=== PATIENT | male | born 1955 | race Caucasian/White ===

== ENCOUNTER 2017-08-20 11:20 | Emergency (ER) | payer MEDICARE, MEDICAID ==
[~2017-08-20] VITALS: Ht 188 cm; Wt 99.8 kg
[~2017-08-20 11:20] MED LIST: INSULIN SUBCUT
--- NOTE | 2017-08-20 11:43 | NUR ---
PT LEFT WITHOUT RECIEVING THE D/C INSTRUCTION
== END 2017-08-20 11:43 | disposition home or self-care (01) ==
LOC: ER 11:25
DX: M54.5 Low back pain (principal); G89.4 Chronic pain syndrome; Z88.2 Allergy status to sulfonamides; Z88.8 Allergy status to other drugs, medicaments and biological substances; Z79.4 Long term (current) use of insulin
CPT/HCPCS: A4663

== ENCOUNTER 2017-09-06 14:13 | Emergency (ER) | payer MEDICAID, MEDICARE ==
[~2017-09-06] VITALS: Ht 188 cm; Wt 99.8 kg
--- NOTE | 2017-09-06 14:53 | NUR ---
DR Reeves at the bedside for MSE.
[2017-09-06] MEDS ORDERED: CLINDAMYCIN HCL 150 MG CAPSULE ONE (15:00)
[2017-09-06] MEDS ORDERED: CLINDAMYCIN HCL 150 MG CAPSULE PO ONE (15:00)
[2017-09-06] MEDS ORDERED: HYDROCODONE/APAP 10-325 MG TABLET ONE (15:04)
[2017-09-06 15:07] VITALS: BP 109/72
--- NOTE | 2017-09-06 15:07 | NUR ---
Patient discharged to home in stable conditon. Written and verbal after care instructions given. Patient verbalizes understanding of instructions.
[2017-09-06] MEDS ORDERED: HYDROCODONE/APAP 10-325 MG TABLET PO ONE (15:15)
== END 2017-09-06 15:08 | disposition home or self-care (01) ==
LOC: ER 14:14
DX: L03.012 Cellulitis of left finger (principal); E78.5 Hyperlipidemia, unspecified; Z88.2 Allergy status to sulfonamides; Z88.8 Allergy status to other drugs, medicaments and biological substances; Z79.4 Long term (current) use of insulin
CPT/HCPCS: A4663

== ENCOUNTER 2017-10-23 04:03 | Emergency (ER) | payer MEDICARE ==
[~2017-10-23] VITALS: Ht 188 cm; Wt 99.8 kg
--- NOTE | 2017-10-23 04:23 | NUR ---
Dr. Fonseca at bedside for MSE.
[2017-10-23] MEDS: CLINDAMYCIN HCL 150 MG CAPSULE PO ONE (04:27)
[2017-10-23] MEDS ORDERED: HYDROCODONE/APAP 5-325MG TABLET ONE (04:28)
[2017-10-23] MEDS: HYDROCODONE/APAP 5-325MG TABLET PO ONE (04:28)
[2017-10-23] MEDS ORDERED: CLINDAMYCIN HCL 300 MG CAPSULE ONE (04:29)
--- NOTE | 2017-10-23 04:30 | NUR ---
Patient discharged to home in stable conditon. Written and verbal after care instructions given. Patient verbalizes understanding of instructions. Pt ambulated out of ER with steady gait, no acute signs of distress, VSS, all belongings taken.
[2017-10-23 04:32] VITALS: BP 120/73
== END 2017-10-23 04:34 | disposition home or self-care (01) ==
LOC: ER 04:07
DX: L02.211 Cutaneous abscess of abdominal wall (principal); F17.200 Nicotine dependence, unspecified, uncomplicated; Z88.2 Allergy status to sulfonamides; Z88.8 Allergy status to other drugs, medicaments and biological substances; Z79.4 Long term (current) use of insulin
CPT/HCPCS: A4663; J7030

== ENCOUNTER 2017-11-27 18:36 | Emergency (ER) | payer MEDICARE ==
[~2017-11-27] VITALS: Ht 188 cm; Wt 99.8 kg
--- NOTE | 2017-11-27 19:34 | NUR ---
Dr. Hopper at bedside for MSE.
--- NOTE | 2017-11-27 19:40 | NUR ---
Pt refused IV, reports he doesn't have many good veins, has plans to come back later to get IV antibiotic. notified.
[2017-11-27] MEDS ORDERED: OXYCODONE/APAP 5-325 MG TABLET PO ONE (19:45)
[2017-11-27] MEDS ORDERED: VANCOMYCIN IV 1,000 MG in IV DEXTROSE 5% 250 ML IV ONE (19:45)
--- NOTE | 2017-11-27 19:45 | NUR ---
Patient does not wish to proceed with medical care recommended by Dr. Hopper. Patient given information related to possible complications, up to and including , which could occur as a result of leaving the hospital at this time. Patient verbalizes understanding of risks involved due to leaving against medical advice. Patient has signed AMA form.
[2017-11-27] MEDS ORDERED: OXYCODONE/APAP 5-325 MG TABLET ONE (19:47)
[2017-11-27 19:49] VITALS: BP 120/74
== END 2017-11-27 19:50 | disposition left against medical advice (07) ==
LOC: ER 18:39
DX: M71.121 Other infective bursitis, right elbow (principal); G89.4 Chronic pain syndrome; Z71.6 Tobacco abuse counseling; F17.200 Nicotine dependence, unspecified, uncomplicated
CPT/HCPCS: 99282; A4663

== ENCOUNTER 2017-11-28 14:01 | Inpatient (IN) | payer MEDICARE ==
[~2017-11-28] VITALS: Ht 188 cm; Wt 99.8 kg
[2017-11-28] MEDS ORDERED: VANCOMYCIN IV 1,000 MG in IV DEXTROSE 5% 250 ML IV ONE (15:15)
[2017-11-28] MEDS ORDERED: VANCOMYCIN IV 200 ML ONE (15:20)
[2017-11-28] MEDS ORDERED: KETOROLAC TROMETHAMINE 15 MG INJ IM ONE (16:15)
[2017-11-28] MEDS ORDERED: KETOROLAC TROMETHAMINE 15 MG INJ ONE (16:25)
[2017-11-28] MEDS ORDERED: MORPHINE SULFATE 4 MG/1 ML DISP.SYRIN SQ ONE (16:45)
[2017-11-28] MEDS ORDERED: IV NS 1000 ML 1,000 ML IV PRN (16:49)
[2017-11-28] MEDS ORDERED: MORPHINE SULFATE 4 MG/1 ML DISP.SYRIN ONE (16:49)
[2017-11-28] MEDS ORDERED: TEMAZEPAM 15 MG CAPSULE PO PRN (17:00)
[2017-11-28] MEDS ORDERED: ACETAMINOPHEN 325 MG TABLET PO PRN (17:00)
[2017-11-28] MEDS ORDERED: ONDANSETRON 4 MG/2 ML VIAL IV PRN (17:00)
[2017-11-28] MEDS ORDERED: HYDROCODONE/APAP 10-325 MG TABLET PO PRN (17:00)
[2017-11-28] MEDS ORDERED: MORPHINE SULFATE 2 MG/1 ML DISP.SYRIN IV PRN (17:00)
[2017-11-28] MEDS ORDERED: MORPHINE SULFATE 4 MG/1 ML DISP.SYRIN IV PRN (17:30)
[2017-11-28 17:47] VITALS: BP 127/81
[2017-11-28 20:59] VITALS: BP 125/72
[2017-11-28] MEDS ORDERED: CEFAZOLIN 1 G in PREMIXED 1 EACH IV SCH (22:00)
== END 2017-11-28 22:45 | disposition left against medical advice (07) | DRG 558 ==
LOC: ER 14:01 → MED 17:13
PROVIDERS: ADMIT Nurse Practitioner Acute Care; ATTEND Nurse Practitioner Acute Care
DX: M71.121 Other infective bursitis, right elbow (principal); L02.413 Cutaneous abscess of right upper limb; F11.20 Opioid dependence, uncomplicated; F17.210 Nicotine dependence, cigarettes, uncomplicated; Z87.442 Personal history of urinary calculi; E66.9 Obesity, unspecified; Z68.28 Body mass index [BMI] 28.0-28.9, adult; G89.4 Chronic pain syndrome
CPT/HCPCS: A4663; J0690; J1885; J2270; J3370

== ENCOUNTER 2018-05-09 14:48 | Emergency (ER) | payer MEDICARE ==
[~2018-05-09] VITALS: Ht 188 cm; Wt 99.8 kg
[2018-05-09] MEDS ORDERED: HYDROMORPHONE 2 MG/1 ML DISP.SYRIN ONE (15:09)
[2018-05-09] MEDS ORDERED: ONDANSETRON 4 MG/2 ML VIAL ONE (15:09)
[2018-05-09] MEDS ORDERED: KETOROLAC TROMETHAMINE 30 MG INJ ONE (15:09)
[2018-05-09] MEDS ORDERED: HYDROMORPHONE 1 MG/1 ML DISP.SYRIN IV ONE (15:15)
[2018-05-09] MEDS ORDERED: IV NORMAL SALINE 1000 ML BAG IV ONE (15:15)
[2018-05-09] MEDS ORDERED: KETOROLAC TROMETHAMINE 15 MG INJ IV ONE (15:15)
[2018-05-09] MEDS ORDERED: ONDANSETRON 4 MG/2 ML VIAL IV ONE (15:15)
--- NOTE | 2018-05-09 15:24 | NUR ---
PT IS IN ROOM #2A. DR GA EVALUATED THE PT.
--- NOTE | 2018-05-09 15:58 | NUR ---
PT WAS D/C 'd TO HOME. D/C INSTRUCTIONS GIVEN TO THE PT.
[2018-05-09 16:01] VITALS: BP 139/91
== END 2018-05-09 16:02 | disposition home or self-care (01) ==
LOC: ER 14:48
DX: R10.9 Unspecified abdominal pain (principal); F17.200 Nicotine dependence, unspecified, uncomplicated
CPT/HCPCS: 96374; 96375; 99283; J1170; J1885; J2405; A4663; J7030

== ENCOUNTER 2020-01-26 20:27 | Inpatient (IN) | payer MEDICARE ==
[~2020-01-26] VITALS: Ht 188 cm; Wt 99.8 kg
[2020-01-26] MEDS: CEFTRIAXONE 2 G in IV DEXTROSE 5% 100 ML IV SCH (01:42)
--- NOTE | 2020-01-26 20:40 | NUR ---
Dr. Hopper at bedside for MSE.
[2020-01-26] MEDS ORDERED: VANCOMYCIN IV 1,000 MG in IV DEXTROSE 5% 250 ML IV ONE ×2 (20:45→23:45)
--- NOTE | 2020-01-26 20:50 | NUR ---
Pt requested to move his car to the parking lot, as he is parked in front. Allowed patient to do so before getting started for work up.
[2020-01-26] MEDS ORDERED: VANCOMYCIN IV 200 ML ONE (20:58)
[2020-01-26] MEDS ORDERED: diphenhydrAMINE 50 MG/1 ML VIAL IV ONE (21:00)
[2020-01-26] MEDS ORDERED: methylPREDNISolone SOD SUCC 125 MG/2 ML VIAL IV ONE (21:00)
--- NOTE | 2020-01-26 21:04 | NUR ---
Pt still not back, security notified to check on parking garage.
--- NOTE | 2020-01-26 21:10 | NUR ---
Pt is back in room. security alarm technician at bedside for CXR.
[2020-01-26 21:32] LABS: BASOPHILS % (AUTO) 0.2 % (0.0-2.0); EOSINOPHILS % (AUTO) 0.2 % (0.0-7.0); HEMATOCRIT 41.4 % (36.7-47.1); LYMPHOCYTES # (AUTO) 1.1 K/uL (20.0-40.0); LYMPHOCYTES % (AUTO) 12.8 % (20.5-51.5); MEAN CORPUSCULAR HEMOGLOBIN 29.2 uug (23.8-33.4); MEAN CORPUSCULAR HGB CONC 34 g/dL (32.5-36.3); MEAN CORPUSCULAR VOLUME 86.3 fL (73.0-96.2); MONOCYTES # (AUTO) 0.8 K/uL (2.0-10.0); NEUTROPHILS # (AUTO) 6.6 K/uL (1.8-8.9); NEUTROPHILS % (AUTO) 77.8 % (38.5-71.5); PLATELET COUNT (AUTO) 178 K/uL (152-348); WHITE BLOOD COUNT (AUTO) 8.5 K/uL (3.6-10.2)
[2020-01-26 21:35] LABS: CREATININE 1.6 mg/dL (0.6-1.3); POTASSIUM 3.9 mmol/L (3.5-5.1)
--- NOTE | 2020-01-26 21:39 | NUR ---
Dr Hopper wants to admit patient for facial cellulitis. [facility] paged for panel call.
[2020-01-26 21:43] LABS: BILIRUBIN,DIRECT 0.2 mg/dL (0.0-0.2); BILIRUBIN,TOTAL 0.8 mg/dL (0.2-1.0); TOTAL PROTEIN, SERUM 8.5 g/dL (6.4-8.2)
--- NOTE | 2020-01-26 21:43 | NUR ---
Dr. Hopper on panel call with Martha Hayward NP.
--- NOTE | 2020-01-26 21:45 | NUR ---
Pt had been accepted for admission at this time. Pending COVID 19 result. Will send upstairs once results are back.
[2020-01-26] MEDS ORDERED: diphenhydrAMINE 50 MG/1 ML VIAL ONE (21:50)
[2020-01-26] MEDS ORDERED: methylPREDNISolone SOD SUCC 125 MG/2 ML VIAL ONE (21:51)
[2020-01-26] MEDS ORDERED: MAGNESIUM HYDROXIDE 30 ML LIQUID UDC PO PRN (22:00)
[2020-01-26] MEDS ORDERED: HYDROCODONE/APAP 5-325MG TABLET PO PRN (22:00)
[2020-01-26] MEDS ORDERED: ACETAMINOPHEN 325 MG TABLET PO PRN (22:00)
[2020-01-26] MEDS ORDERED: HYDROMORPHONE 1 MG/1 ML DISP.SYRIN IV PRN (22:00)
[2020-01-26] MEDS ORDERED: Z GUARD REMEDY PASTE 57 GM TUBE TOP PRN (22:00)
[2020-01-26] MEDS ORDERED: ONDANSETRON 4 MG/2 ML VIAL IV PRN (22:00)
--- NOTE | 2020-01-26 23:05 | NUR ---
COVID result back, negative. Report given to Yary HURLEY.
--- NOTE | 2020-01-26 23:37 | NUR ---
Pt received by wheelchair at 2337. Pt on 2L/min NC. Does not appear to be in any distress at this time. Admission under the care of Dr. Hayward. Dx: Facial Cellulitis. Belonging list accounted for. FDC assessment done. Safety and comfort provided. Will continue to monitor.
[2020-01-27] VITALS: BP 122/72
[2020-01-27] MEDS: IV NS 1000 ML 1,000 ML IV PRN ×2 (00:01→21:12)
--- NOTE | 2020-01-27 00:15 | NUR ---
Dr. Hayward aware of the Vancocin administered already in Er. Dr. Hayward ordered for pharmacy to dose in the morning. That is why the Vancocin at 2345H was not administered. Charge nurse aware.
[2020-01-27] MEDS ORDERED: CEFTRIAXONE 1 G VIAL ONE (01:06)
--- NOTE | 2020-01-27 01:10 | NUR ---
Patient accidentally pulled out his IV while shifting around in bed. He refuses another IV at this time.
--- NOTE | 2020-01-27 01:40 | NUR ---
Attempted to reinsert IV because Rocephin is ready for pt at this time but he still refuses.
[2020-01-27] MEDS: CEFTRIAXONE 2 G in IV DEXTROSE 5% 100 ML IV SCH ×2 (01:41→21:15)
[2020-01-27 04:02] VITALS: BP 125/52
--- NOTE | 2020-01-27 06:00 | NUR ---
Loom Operator Apprentice came to draw blood and patient refused lab draw. Pt also still refused IV insertion.
--- NOTE | 2020-01-27 06:03 | NUR ---
Patient alseep and relaxed in bed. No complaints throughout the night. Pulled out IV at 0110 and refused another IV insertion. Pt also refused lab draw. Charge nurse aware. Other than that patient was pleasant. On 2L NC. No s/s of respiratory distress. Bed is locked and in lowest position. Call light is within reach.
[2020-01-27] MEDS ORDERED: VANCOMYCIN IV 750 MG in IV DEXTROSE 5% 250 ML IV SCH (09:00)
--- NOTE | 2020-01-27 09:50 | NUR ---
Pt brought down to CT via wheelchair. Agreed to have IV reinserted after CT.
[2020-01-27] MEDS: VANCOMYCIN IV 750 MG in IV DEXTROSE 5% 250 ML IV SCH ×2 (11:04→22:57)
[2020-01-27 11:50] VITALS: BP 115/70
[2020-01-27] MEDS ORDERED: diphenhydrAMINE 25 MG/10 ML UDC PO PRN (12:30)
[2020-01-27] MEDS ORDERED: diphenhydrAMINE 25 MG CAP PO PRN (12:45)
[2020-01-27 16:21] LABS: BASOPHILS % (AUTO) 0.1 % (0.0-2.0); EOSINOPHILS % (AUTO) 0.1 % (0.0-7.0); HEMATOCRIT 43.8 % (36.7-47.1); HEMOGLOBIN 14.7 g/dL (12.5-16.3); LYMPHOCYTES # (AUTO) 1.1 K/uL (20.0-40.0); LYMPHOCYTES % (AUTO) 7.6 % (20.5-51.5); MEAN CORPUSCULAR HGB CONC 34 g/dL (32.5-36.3); MEAN CORPUSCULAR VOLUME 86.4 fL (73.0-96.2); MONOCYTES # (AUTO) 0.7 K/uL (2.0-10.0); MONOCYTES % (AUTO) 5.4 % (0.0-11.0); NEUTROPHILS # (AUTO) 12.1 K/uL (1.8-8.9); NEUTROPHILS % (AUTO) 86.8 % (38.5-71.5); PLATELET COUNT (AUTO) 223 K/uL (152-348); RED BLOOD CELL COUNT(AUTO) 5.07 MIL/uL (4.06-5.63); WHITE BLOOD COUNT (AUTO) 13.9 K/uL (3.6-10.2)
[2020-01-27 16:26] LABS: BILIRUBIN,TOTAL 0.5 mg/dL (0.2-1.0); CREATININE 1.7 mg/dL (0.6-1.3); MAGNESIUM 2.2 mg/dL (1.8-2.4); PHOSPHOROUS 1.6 mg/dL (2.5-4.9); POTASSIUM 4.2 mmol/L (3.5-5.1); TOTAL PROTEIN, SERUM 8.7 g/dL (6.4-8.2)
[2020-01-27 16:42] VITALS: BP 114/71
--- NOTE | 2020-01-27 19:30 | NUR ---
Pt in bed, sleeping, easy to arouse. No s/s of acute distress or pain at this time. V/S stable on 2L tolerating well and saturating at 94%. Patient is noted to have facial redness. Safety measures in place. Bed low and locked in position. Call light within reach. Will continue with the plan of care.
--- NOTE | 2020-01-27 19:37 | NUR ---
Pt stable throughout shift, asleep but arousable to name. On RA but O2 @ bedside, denied SOB and no distress at this time. Safety precaution in place. Bed locked in lowest position with siderails 2x up. Call light and phone within reach. Will endorse
[2020-01-27 20:17] VITALS: BP 114/64
[2020-01-28 05:17] VITALS: BP 106/67
--- NOTE | 2020-01-28 06:54 | NUR ---
Pt stable throughout the shift. Comfort care and needs attended. Refused am labs. Safety measures in place. Call light within reach. Will endorse to the oncoming nurse accordingly.
[2020-01-28 08:00] VITALS: BP 105/65
[2020-01-28] MEDS: IV NS 1000 ML 1,000 ML IV PRN (10:10)
[2020-01-28 10:30] LABS: CREATININE 1.5 mg/dL (0.6-1.3); POTASSIUM 4.2 mmol/L (3.5-5.1)
[2020-01-28] MEDS: VANCOMYCIN IV 750 MG in IV DEXTROSE 5% 250 ML IV SCH (11:10)
[2020-01-28 12:53] VITALS: BP 104/67
[2020-01-28 16:37] VITALS: BP 114/66
--- NOTE | 2020-01-28 17:00 | NUR ---
Pt went down and said that he needs to give something to his brother. But patient was brought up by security and informed nurse and CHRN that pt went down to smoke. Nurse was in another patient's room when pt went down. Pt back in room. no issues
--- NOTE | 2020-01-28 18:57 | NUR ---
Patient stable throughout shift, AOx4, in bed. Not in any distress. Safety precautions in place. Call light and phone within reach
[2020-01-28 20:45] VITALS: BP 111/71
[2020-01-28] MEDS: CEFTRIAXONE 2 G in IV DEXTROSE 5% 100 ML IV SCH (21:05)
--- NOTE | 2020-01-28 22:00 | NUR ---
Patient IV pulled out.unable to insert new IV line.Refused to have IV line insertion and wanted to go home.Explained risk and benefits.Patient stated he was upset and he's been asking for picc line when he first came here in the ER.He further stated he's been refusing lab draws too due to hard stick.Patient insisted to go AMa and refused to sign the AMA paper.Patient stable and ambulatory.Picked up girlfriend.Hide Cooking Operator and MD made aware.
== END 2020-01-28 22:00 | disposition left against medical advice (07) | DRG 602 ==
LOC: ER 20:27 → MEDSURG3 23:24
PROVIDERS: ADMIT Nurse Practitioner Acute Care; ATTEND Nurse Practitioner Acute Care
DX: L03.211 Cellulitis of face (principal); N17.0 Acute kidney failure with tubular necrosis; N39.0 Urinary tract infection, site not specified; A52.3 Neurosyphilis, unspecified; G89.4 Chronic pain syndrome; Z79.891 Long term (current) use of opiate analgesic; Z87.442 Personal history of urinary calculi; F17.210 Nicotine dependence, cigarettes, uncomplicated; J44.9 Chronic obstructive pulmonary disease, unspecified; W57.XXXA Bitten or stung by nonvenomous insect and other nonvenomous arthropods, initial encounter; Y93.9 Activity, unspecified; Y92.009 Unspecified place in unspecified non-institutional (private) residence as the place of occurrence of the external cause; K02.9 Dental caries, unspecified; N18.9 Chronic kidney disease, unspecified; Z79.84 Long term (current) use of oral hypoglycemic drugs; R06.03 Acute respiratory distress; E11.22 Type 2 diabetes mellitus with diabetic chronic kidney disease
CPT/HCPCS: 36415; 70450; 70486; 71045; 83605; 83735; 84100; 85025; 86592; 87040; A4663; G0378; J0696; J1200; J2930; J3370; J7030; J7060

== ENCOUNTER 2021-04-13 11:19 | Emergency (ER) | payer MEDICARE ==
[~2021-04-13] VITALS: Ht 188 cm; Wt 99.8 kg
--- NOTE | 2021-04-13 11:35 | NUR ---
pt in room, very confrontational, non-cooperative at the time heplock. threatening to call and complain, number rovided for pt to call.
[2021-04-13] MEDS ORDERED: ONDANSETRON 4 MG/2 ML VIAL IV ONE (11:45)
[2021-04-13] MEDS ORDERED: IV NORMAL SALINE 1000 ML BAG IV ONE (11:45)
[2021-04-13] MEDS ORDERED: KETOROLAC TROMETHAMINE 15 MG INJ IVP ONE (12:00)
[2021-04-13 12:08] LABS: *BILIRUBIN,URIN NEGATIVE (NEGATIVE); *BLOOD, URINE NEGATIVE (NEGATIVE); *CLARITY,URINE CLEAR (CLEAR); *COLOR,URINE YELLOW (YELLOW); *KETONES,URINE 1+ (NEGATIVE); HEMATOCRIT 45.2 % (36.7-47.1); LEUKOCYTE ESTERASE ,URINE NEGATIVE (NEGATIVE); MEAN CORPUSCULAR HEMOGLOBIN 29.7 uug (23.8-33.4); MEAN CORPUSCULAR VOLUME 87.6 fL (73.0-96.2); NITRITE, URINE NEGATIVE (NEGATIVE); PLATELET COUNT (AUTO) 217 K/uL (152-348); UGLUCOSE NEGATIVE (NEGATIVE)
[2021-04-13] MEDS ORDERED: KETOROLAC TROMETHAMINE 15 MG INJ ONE (12:14)
[2021-04-13] MEDS ORDERED: ONDANSETRON 4 MG/2 ML VIAL ONE (12:14)
--- NOTE | 2021-04-13 12:14 | NUR ---
pt refused covid test, notified.
[2021-04-13 12:24] LABS: BILIRUBIN,TOTAL 0.6 mg/dL (0.2-1.0); CREATININE 1.4 mg/dL (0.6-1.3); POTASSIUM 4.4 mmol/L (3.5-5.1); TOTAL PROTEIN, SERUM 8.8 g/dL (6.4-8.2)
[2021-04-13] MEDS ORDERED: ONDA8TAB13 PO (13:09)
--- NOTE | 2021-04-13 13:24 | NUR ---
Patient discharged to home in stable condition. Written and verbal after care instructions given. Patient verbalizes understanding of instructions. Stressed follow up or return to ER for worsening s/s.pt walks in steady gait. pt says feels better.
[2021-04-13 13:33] VITALS: BP 111/79
== END 2021-04-13 13:34 | disposition home or self-care (01) ==
LOC: ER 11:21
DX: R11.2 Nausea with vomiting, unspecified (principal); R10.13 Epigastric pain; S20.219A Contusion of unspecified front wall of thorax, initial encounter; W22.03XA Walked into furniture, initial encounter; Y92.89 Other specified places as the place of occurrence of the external cause; N20.0 Calculus of kidney; G89.4 Chronic pain syndrome; J44.9 Chronic obstructive pulmonary disease, unspecified; I45.10 Unspecified right bundle-branch block; R03.0 Elevated blood-pressure reading, without diagnosis of hypertension
CPT/HCPCS: 36415; 71045; 74176; 80053; 81003; 83690; 84484; 85025; 93005; 96361; 96374; 96375; 99285; J1885; J2405; 70030-TC; A4663; J7030

== ENCOUNTER 2023-01-03 04:16 | Emergency (ER) | payer MEDICARE ==
[~2023-01-03] VITALS: Ht 188 cm; Wt 99.8 kg
[2023-01-03] MEDS ORDERED: IV NORMAL SALINE 1000 ML BAG IV ONE (04:45)
[2023-01-03 05:34] LABS: BASOPHILS % (AUTO) 0.4 % (0.0-2.0); EOSINOPHILS # (AUTO) 0.1 K/uL (0.0-0.7); EOSINOPHILS % (AUTO) 1.4 % (0.0-7.0); HEMATOCRIT 41.1 % (36.7-47.1); LYMPHOCYTES # (AUTO) 1.8 K/uL (0.8-4.8); LYMPHOCYTES % (AUTO) 30.7 % (20.5-51.5); MEAN CORPUSCULAR HEMOGLOBIN 29.3 uug (23.8-33.4); MEAN CORPUSCULAR HGB CONC 34 g/dL (32.5-36.3); MEAN CORPUSCULAR VOLUME 85.7 fL (73.0-96.2); MONOCYTES # (AUTO) 0.3 K/uL (0.1-1.30); MONOCYTES % (AUTO) 5.5 % (0.0-11.0); NEUTROPHILS # (AUTO) 3.6 K/uL (1.8-8.9); PLATELET COUNT (AUTO) 175 K/uL (152-348); RED BLOOD CELL COUNT(AUTO) 4.79 MIL/uL (4.06-5.63); RED CELL DISTRIBUTION WIDTH 13.2 % (12.1-16.2); WHITE BLOOD COUNT (AUTO) 5.8 K/uL (3.6-10.2)
[2023-01-03 05:37] LABS: DIFFERENTIAL COMMENT 1
[2023-01-03 05:46] LABS: CALCIUM 10.1 mg/dL (8.5-10.1); CARBON DIOXIDE 31 mmol/L (21-32); CHLORIDE 101 mmol/L (98-107); CREATININE 1.5 mg/dL (0.6-1.3); GLUCOSE 124 mg/dL (74-106); POTASSIUM 3.6 mmol/L (3.5-5.1); SODIUM SERUM 140 mmol/L (136-145); UREA NITROGEN, BLOOD 20 mg/dL (7-18)
[2023-01-03 05:53] LABS: ALANINE AMINOTRANSFERASE 24 U/L (16-63); ALBUMIN 3.5 g/dL (3.4-5.0); ALKALINE PHOSPHATASE 59 U/L (50-136); ASPARTATE AMINOTRANSFERASE 18 U/L (15-37); BILIRUBIN,DIRECT 0.2 mg/dL (0.0-0.2); BILIRUBIN,TOTAL 0.8 mg/dL (0.2-1.0); TOTAL PROTEIN, SERUM 8.1 g/dL (6.4-8.2)
[2023-01-03 05:55] LABS: ETHANOL < 3 MG/DL (0-10)
[2023-01-03 05:59] LABS: ACETAMINOPHEN < 10.0 ug/mL (10-30)
[2023-01-03 06:10] LABS: LACTIC ACID 2.3 mmol/L (0.4-2.0)
[2023-01-03 06:51] LABS: *BILIRUBIN,URIN NEGATIVE (NEGATIVE); *BLOOD, URINE TRACE (NEGATIVE); *CLARITY,URINE CLEAR (CLEAR); *COLOR,URINE YELLOW (YELLOW); *KETONES,URINE NEGATIVE (NEGATIVE); *PROTEIN,URINE 1+ (NEGATIVE); *UROBILINOGEN,URINE 0.2 E.U./dl (NORMAL); LEUKOCYTE ESTERASE ,URINE NEGATIVE (NEGATIVE); NITRITE, URINE NEGATIVE (NEGATIVE); PH,URINE 7.5 (5.0-8.0); UGLUCOSE NEGATIVE (NEGATIVE)
[2023-01-03 06:57] LABS: *AMPHETAMINE, URINE POSITIVE (NEGATIVE); *BARBITURATE, URINE NEGATIVE (NEGATIVE); *BENZODIAZEPINE, URINE NEGATIVE (NEGATIVE); *CANNABINOID, URINE POSITIVE (NEGATIVE); *COCCAINE, URINE POSITIVE (NEGATIVE); *OPIATE, URINE POSITIVE (NEGATIVE); *PHENCYCLIDINE SCREEN,URINE NEGATIVE (NEGATIVE); FENTANYL, URINE POSITIVE (NEGATIVE)
[2023-01-03 07:02] LABS: RBC,URINE 0-3 /HPF (0-3); WBC,URINE 0-3 /HPF (0-3)
[2023-01-03 07:03] LABS: BACTERIA,URINE NONE SEEN /HPF (NONE SEEN); SQUAMOUS EPITHELIAL CELL,UR FEW /HPF (NONE SEEN)
[2023-01-03 12:10] VITALS: BP 129/76; O2SAT 99
== END 2023-01-03 12:10 | disposition home or self-care (01) ==
LOC: ER 04:19
DX: T40.411A Poisoning by fentanyl or fentanyl analogs, accidental (unintentional), initial encounter (principal); R41.82 Altered mental status, unspecified; E87.20 Acidosis, unspecified; J44.9 Chronic obstructive pulmonary disease, unspecified; F17.210 Nicotine dependence, cigarettes, uncomplicated; Y92.89 Other specified places as the place of occurrence of the external cause
CPT/HCPCS: 80076; 80048; 81001; 82550; 85025; 84484; 36415; 93005; 71045; 70450; 99285; 96360; 83605 ×2; 80299; 80320; 80307; J7040; A4663; G0480

== ENCOUNTER 2024-05-18 14:44 | Emergency (ER) | payer MEDICARE ==
[~2024-05-18] VITALS: Ht 188 cm; Wt 99.8 kg
[2024-05-18 14:58] VITALS: O2SAT 93
[2024-05-18] MEDS ORDERED: AZIT500T PO (17:00)
[2024-05-18] MEDS ORDERED: PROM118S5 PO (17:00)
[2024-05-18] MEDS ORDERED: CEFD300C3 PO (17:00)
== END 2024-05-18 16:50 | disposition left against medical advice (07) ==
LOC: ER 14:44
DX: R07.89 Other chest pain (principal); J15.9 Unspecified bacterial pneumonia; F17.210 Nicotine dependence, cigarettes, uncomplicated; G89.4 Chronic pain syndrome; J44.0 Chronic obstructive pulmonary disease with (acute) lower respiratory infection; Z88.7 Allergy status to serum and vaccine
CPT/HCPCS: 71045; A4606; A4663